=== PATIENT | male | born 2000 | race Caucasian/White ===

== ENCOUNTER 2020-12-03 12:32 | Emergency (ER) | payer OTHER ==
[~2020-12-03] VITALS: Ht 172.7 cm; Wt 75.5 kg
[2020-12-03] MEDS ORDERED: ACETAMINOPHEN 500 MG TAB PO ONE (13:00)
[2020-12-03] MEDS ORDERED: NS 1,000 ML IV ONE (13:10)
[2020-12-03 13:29] VITALS: O2SAT 98
[2020-12-03 13:37] LABS: BASO % 0.3 % (0.0-1.0); EOS # 0.1 10^3/uL (0.0-0.5); EOS % 0.9 % (0.0-3.0); HEMATOCRIT 47.2 % (42.0-52.0); HEMOGLOBIN 16.5 g/dl (13.5-17.5); LYMPH # 1.4 10^3/uL (1.5-5.0); MEAN CORPUSCULAR HEMOGLOBIN 31.4 pg (27.0-33.0); MEAN CORPUSCULAR VOLUME 89.9 fl (80.0-96.0); MONO # 0.8 10^3/uL (0.0-0.8); MONO % 7.8 % (2.0-8.0); NEUTROPHILS # 8.1 10^3/uL (1.5-8.5); NEUTROPHILS % 77.3 % (36.0-66.0); PLATELET COUNT, AUTOMATED 202 10^3/uL (150-450); RED BLOOD COUNT 5.25 10^6/uL (4.30-6.10); WHITE BLOOD COUNT 10.5 10^3/uL (4.0-10.0)
[2020-12-03 14:08] LABS: ALBUMIN 4.4 GM/DL (3.2-5.2); ALT/SGPT 45 U/L (12-78); BILIRUBIN,DIRECT 0.2 MG/DL (0.0-0.2); BILIRUBIN,TOTAL 0.9 MG/DL (0.2-1.0); CK-MB VALUE MASS 3.7 NG/ML (<3.6); CPK CREATINE PHOSPHOKINASE 457 U/L (39-308); LIPASE 144 U/L (73-393); MB/CK RELATIVE INDEX 0.81 (< OR =4); TOTAL PROTEIN 7.5 GM/DL (6.4-8.2); TROPONIN I < 0.02 NG/ML (< 0.10)
--- NOTE | 2020-12-03 14:38 | REP ---
INDICATION: Chest pain COMPARISON: None. TECHNIQUE: Portable AP view of the chest FINDINGS: The mediastinum and cardiac silhouette are within normal limits for portable technique. The lung chavarria are clear without acute consolidation, effusion, or pneumothorax. Skeletal structures are intact. IMPRESSION: No acute cardiopulmonary process appreciated. <Electronically signed by [place] [employer] > 12/03/20 [id number]
[2020-12-03] MEDS ORDERED: PROAAER10 INH (15:48)
[2020-12-03 15:52] VITALS: BP 121/55
--- NOTE | 2020-12-03 18:17 | ECGEPIP ---
[facility] - ED Test Date: 2020-12-03 Pat Name: DEEP MENDIETA Department: Room: - Gender: Male Web Production Assistant: MELONIE : 2000 Requested By: JANNETH Avery PA-C Order Number: [id number] Reading MD: Helena Harman Measurements Intervals [place] Rate: 74 P: 30 CA: 148 QRS: 76 QRSD: 90 T: 12 QT: 344 QTc: 381 Interpretive Statements Normal sinus rhythm with sinus arrhythmia No prior Electronically Signed on 12-03-2020 18:17:21 EDT by Helena Harman
== END 2020-12-03 16:26 | disposition home or self-care (01) ==
LOC: M ED 12:32
DX: R07.0 Pain in throat (principal); T50.B95A Adverse effect of other viral vaccines, initial encounter; R51.9 Headache, unspecified; R07.9 Chest pain, unspecified; M79.10 Myalgia, unspecified site

== ENCOUNTER 2022-02-21 12:20 | Emergency (ER) | payer OTHER ==
[~2022-02-21] VITALS: Ht 172.7 cm; Wt 77.0 kg
[~2022-02-21 12:20] MED LIST: PROAAER10 INH
[2022-02-21 13:14] LABS: HEMOGLOBIN 16.8 g/dl (13.5-17.5); MEAN CORPUSCULAR HEMOGLOBIN 30.5 pg (27.0-33.0); MEAN CORPUSCULAR VOLUME 87.3 fl (80.0-96.0); PLATELET COUNT, AUTOMATED 230 10^3/uL (150-450); WHITE BLOOD COUNT 8.2 10^3/uL (4.0-10.0)
[2022-02-21 14:01] LABS: BLOOD UREA NITROGEN 18 MG/DL (7-18); GLUCOSE, FASTING 110 MG/DL (70-100)
[2022-02-21 14:02] LABS: ACETAMINOPHEN LEVEL < 2.0 UG/ML (10.0-30.0); ALBUMIN 4.8 GM/DL (3.2-5.2); ALT/SGPT 46 U/L (12-78); BILIRUBIN,DIRECT 0.2 MG/DL (0.0-0.2); BILIRUBIN,TOTAL 0.7 MG/DL (0.2-1.0); CALCIUM LEVEL 10.1 MG/DL (8.5-10.1); CARBON DIOXIDE LEVEL 26 MEQ/L (21-32); CHLORIDE LEVEL 105 MEQ/L (98-107); CREATININE FOR GFR 1.03 MG/DL (0.70-1.30); ETHYL ALCOHOL (ETHANOL) < 0.003 % (0.000-0.010); GLOMERULAR FILTRATION RATE > 60.0 (>60); POTASSIUM SERUM 3.6 MEQ/L (3.5-5.1); SALICYLATE LEVEL < 1.7 MG/DL (5.0-30.0); SODIUM LEVEL 137 MEQ/L (136-145); TOTAL PROTEIN 8.1 GM/DL (6.4-8.2)
[2022-02-21 14:08] LABS: AMPHETAMINES LEVEL URINE NEGATIVE (NEGATIVE); BARBITURATES URINE NEGATIVE (NEGATIVE); BENZODIAZEPINES URINE NEGATIVE (NEGATIVE); CANNABINOIDS URINE NEGATIVE (NEGATIVE); COCAINE METABOLITE URINE NEGATIVE (NEGATIVE); METHADONE URINE NEGATIVE (NEGATIVE); OPIATES URINE NEGATIVE (NEGATIVE); PHENCYCLIDINE URINE NEGATIVE (NEGATIVE)
[2022-02-21 14:39] LABS: RSV AMPLIFICATION NEGATIVE (NEGATIVE)
[2022-02-21 17:20] VITALS: BP 127/72
== END 2022-02-21 17:21 | disposition home or self-care (01) ==
LOC: M ED 12:20
DX: F31.9 Bipolar disorder, unspecified (principal); J45.909 Unspecified asthma, uncomplicated